=== PATIENT | male | born 1990 | race Caucasian/White ===

== ENCOUNTER → 2021-02-08 | Outpatient (CLI) | payer OTHER | LOC: KOH-I 12:55 | DX: R22.42 Localized swelling, mass and lump, left lower limb (principal); I82.412 Acute embolism and thrombosis of left femoral vein; I82.432 Acute embolism and thrombosis of left popliteal vein; I82.442 Acute embolism and thrombosis of left tibial vein | CPT/HCPCS: 93970 ==